=== PATIENT | male | born 1970 | race Caucasian/White ===

== ENCOUNTER 2018-04-21 08:38 | Emergency (ER) | payer BC ==
[2018-04-21 09:46] VITALS: BP 104/57
--- NOTE | 2018-04-21 20:46 | EDM.PDOC ---
ED HPI GENERAL MEDICAL PROBLEM - General Chief Complaint: Chest Pain Stated Complaint: CHEST PAIN Time Seen by Provider: 04/21/18 09:00 Source of Information: Reports: Patient History Limitations: Reports: No Limitations - History of Present Illness INITIAL COMMENTS - FREE TEXT/NARRATIVE: This is a 47yo M here for recent chest pressure and pain. He states he has had some similar symptoms in the past but this episode started yesterday and has been ongoing. He does have some anxiety he states. He denies any shortness of breath or other concerns. He has taken a 324 aspirin today after feeling the chest pain but states it was an old one from 2010. 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 Right/Mid Chest Pain Score (Numeric/FACES): 3 - Related Data Allergies Allergy/AdvReac Type Severity Reaction Status Date / Time No Known Allergies Allergy Verified 04/21/18 09:05 Home Meds: Home Meds ALPRAZolam [Xanax] 0.25 mg PO QID PRN 04/21/18 [History] Aspirin [Shant Chewable] 81 mg PO DAILY 04/21/18 [History] Lisinopril [Prinivil] 10 mg PO DAILY 04/21/18 [History] atorvaSTATin Calcium [Atorvastatin Calcium] 20 mg PO QPM 04/21/18 [History] Past Medical History Cardiovascular History: Reports: High Cholesterol, Hypertension, CO Psychiatric History: Reports: Anxiety Social & Family History - Tobacco Use Smoking Status *Q: Current Every Day Smoker Years of Tobacco use: 11 Packs/Tins Daily: 1 - Recreational Drug Use Recreational Drug Use: No ED ROS GENERAL - Review of Systems Review Of Systems: ROS reveals no pertinent complaints other than HPI. ED EXAM, GENERAL - Physical Exam Exam: See Below Exam Limited By: No Limitations General Appearance: Alert, WD/WN, No Apparent Distress Eye Exam: Bilateral Eye: EOMI, PERRL Ears: Normal External Exam Nose: Normal Inspection Throat/Mouth: Normal Inspection Head: Atraumatic, Normocephalic Neck: Normal Inspection Respiratory/Chest: No Respiratory Distress, Lungs Clear, Normal Breath Sounds Cardiovascular: Normal Peripheral Pulses, Regular Rate, Rhythm GI/Abdominal: Normal Bowel Sounds Extremities: Normal Inspection Neurological: Alert, Oriented, CN II-XII Intact Psychiatric: Normal Affect, Normal Mood Skin Exam: Warm, Dry, Intact Course - Vital Signs Last Recorded V/S: Last Vital Signs Temp 36.9 C 04/21/18 09:45 Pulse 88 04/21/18 09:45 Resp 16 04/21/18 09:45 BP 104/57 L 04/21/18 09:45 Pulse Ox 99 04/21/18 09:45 - Orders/Labs/Meds Orders: Active Orders 24 hr Category Date Time Status EKG Documentation Completion [RC] ASDIRECTED Care 04/21/18 08:49 Active UA W/MICROSCOPIC [URIN] Stat Lab 04/21/18 09:20 Ordered Labs: Laboratory Tests 04/21/18 04/21/18 04/21/18 Range/Units 08:57 08:57 09:20 WBC 7.7 (4.0-11.0) K/uL RBC 5.39 (4.50-6.50) M/uL Hgb 16.3 (13.0-18.0) g/dL Hct 47.0 (40.0-54.0) % MCV 87 (76-96) fL MCH 30.2 (27.0-32.0) pg MCHC 34.7 (31.0-35.0) g/dL RDW 13.6 (11.0-16.0) % Plt Count 254 (150-400) K/uL MPV 9.7 (6.0-10.0) fL Neut % (Auto) 71.8 H (45.0-70.0) % Lymph % (Auto) 19.6 L (20.0-40.0) % Hancock % (Auto) 6.5 (3.0-10.0) % Eos % (Auto) 1.8 (1.0-5.0) % Baso % (Auto) 0.3 (0.0-0.5) % Neut # (Auto) 5.55 (2.00-7.50) K/uL Lymph # (Auto) 1.51 (1.50-4.00) K/uL Hancock # (Auto) 0.50 (0.20-0.80) K/uL Eos # (Auto) 0.14 (0.04-0.40) K/uL Baso # (Auto) 0.02 (0.02-0.10) K/uL Sodium 140 (136-145) mmol/L Potassium 4.3 (3.5-5.1) mmol/L Chloride 102 (98-107) mmol/L Carbon Dioxide 29.0 (21.0-32.0) mmol/L Anion Gap 13.3 (5.0-15.0) mmol/L BUN 12 (8-26) mg/dL Creatinine 0.93 (0.70-1.30) mg/dL Est Cr Clr Drug Dosing TNP Estimated GFR (MDRD) > 60 (>60) MLS/MIN BUN/Creatinine Ratio 12.9 (6-25) Glucose 174 H (74-100) mg/dL Calcium 9.1 (8.5-10.1) mg/dL Total Bilirubin 0.9 (0.0-1.0) mg/dL AST 21 (15-37) U/L ALT 38 (12-78) U/L Alkaline Phosphatase 85 (46-116) U/L Troponin I < 0.017 (0.000-0.060) ng/mL Total Protein 7.5 (6.4-8.2) g/dL Albumin 4.1 (3.4-5.0) g/dL Globulin 3.4 (2.2-4.2) g/dL Albumin/Globulin Ratio 1.2 (0.8-2.0) TSH, Ultra Sensitive 1.566 (0.358-3.740) uIU/mL Urine Color Yellow Urine Appearance Clear (CLEAR) Urine pH 7.0 (5.0-8.0) Ur Specific [place] 1.015 (1.003-1.030) Urine Protein Negative (NEGATIVE) mg/dL Urine Glucose (UA) Negative (NEGATIVE) mg/dL Urine Ketones Negative (NEGATIVE) mg/dL Urine Occult Blood Negative (NEGATIVE) Urine Nitrite Negative (NEGATIVE) Urine Bilirubin Negative (NEGATIVE) Urine Urobilinogen 0.2 (0.2-1.0) E.U./dL Ur Leukocyte Esterase Negative (NEGATIVE) Urine RBC Not seen /HPF Urine WBC Not seen /HPF Departure - Departure Time of Disposition: 11:00 Disposition: Home, Self-Care 01 Condition: Good Clinical Impression: Chest pain Qualifiers: Chest pain type: other chest pain Qualified Code(s): R07.89 - Other chest pain ; R07.8 - Other chest pain Instructions: Nonspecific Chest Pain, [id number], Steps to Quit Smoking, Angina Pectoris, [id number] Referrals: PCP,None [Primary Care Provider] - Forms: ED Department Discharge Additional Instructions: Keep follow up appointment with your Community Educator on Tuesday. Continuing taking regular home meds. May take Ibuprofen or Aspirin and Tylenol for pain. If you take Nitro at home, make sure you are sitting or laying down in case you get dizzy. Seek medical attention of you develop chest pain that doesn't go away, get sweaty, short of breath, or have nausea/vomiting. - My Orders Last 24 Hours: My Active Orders 04/21/18 08:49 EKG Documentation Completion [RC] ASDIRECTED 04/21/18 09:20 UA W/MICROSCOPIC [URIN] Stat - Assessment/Plan Last 24 Hours: My Active Orders 04/21/18 08:49 EKG Documentation Completion [RC] ASDIRECTED 04/21/18 09:20 UA W/MICROSCOPIC [URIN] Stat
== END 2018-04-21 10:12 | disposition home or self-care (01) ==
LOC: LB.ED 08:38
DX: R07.89 Other chest pain (principal); F17.210 Nicotine dependence, cigarettes, uncomplicated; Z79.899 Other long term (current) drug therapy; I10 Essential (primary) hypertension; E78.00 Pure hypercholesterolemia, unspecified; I25.2 Old myocardial infarction; Z79.82 Long term (current) use of aspirin
CPT/HCPCS: 36415; 80053; 81001; 84443; 84484; 85025; 93005; 99285-25